=== PATIENT | female | born 1935 | race Caucasian/White ===

== ENCOUNTER 2017-06-22 10:55 | Inpatient (IN) | payer OTHER ==
[~2017-06-22] VITALS: Ht 160 cm; Wt 66.2 kg
--- NOTE | ~2017-06-22 | EKG ---
[address] [place] [address] ELECTROCARDIOGRAM REPORT Name: AMAN DEY Room #: 412-P ADM IN M.R.#: [id number] Admission: 06/22/17 Attend Phys: Bunny Knox Discharge: Date of : 31 Report #: [id number] THIS REPORT FOR: //name// [facility] ED Test Date: 2017-06-22 Test Time: 11:15:31 Pat Name: AMAN DEY Department: Room: [facility] Gender: F Industrial Equipment Mechanic: Ziggy RODRIGUEZ : 1935 Requested By: Amanda Cosby Order Number: [id number] MD: Vikram Lange Measurements Intervals [place] Rate: 103 P: 48 VA: 127 QRS: 59 QRSD: 92 T: 24 QT: 340 QTc: 445 Interpretive Statements Sinus tachycardia Otherwise no significant abnormality No previous ECG available for comparison Electronically Signed On 06-23-2017 7:47:11 CDT by Vikram Lange [email or web address] <ELECTRONICALLY SIGNED> By: Vikram Lange MD, [facility] 06/23/17 0747 [id number] 1115 Vikram Lange MD, FACC /EPI
[2017-06-22 10:57] VITALS: BP 147/79
[2017-06-22 11:21] LABS: URINE BILIRUBIN 1+ (Negative); URINE BLOOD NEGATIVE (Negative); URINE COLOR YELLOW; URINE GLUCOSE-RANDOM* NEGATIVE (Negative); URINE KETONES 1+ (Negative); URINE NITRITE NEGATIVE (Negative); URINE PROTEIN (DIPSTICK) TRACE (Negative); URINE SPECIFIC GRAVITY >= 1.030 (1.003-1.035)
[2017-06-22 11:22] LABS: ICTOTEST (BILI CONFIRMATORY) Negative (Negative)
[2017-06-22] MEDS ORDERED: SYNTHROID150 MCG (11:23)
[2017-06-22] MEDS ORDERED: SIMVASTATIN40 MG PO (11:24)
[2017-06-22 11:29] LABS: BACTERIA >30 Many /HPF (None Seen); SQUAMOUS >10 Many /LPF (0-3); URINE WBC 6-15 Few /HPF (0-5)
[2017-06-22 11:30] LABS: CASTS None Seen /LPF (None Seen); CRYSTALS None Seen /LPF (None Seen); URINE RBC None Seen /HPF (0-2)
[2017-06-22 12:00] LABS: ABSOLUTE NEUTROPHILS 11.6 thou/uL (1.4-8.2); BASOPHILS 0.5 % (0.0-2.0); EOSINOPHILS 0.7 % (0.0-3.0); HEMATOCRIT 40.9 % (37.0-47.0); HEMOGLOBIN 13.8 gm/dL (12.0-15.0); LYMPHOCYTES 13.1 % (24.0-44.0); MCH 29.4 pg (26.0-34.0); MCHC 33.7 g/dL (28.0-37.0); MCV 87.3 fL (80.0-100.0); MONOCYTES 8.1 % (1.0-8.0); PLATELET COUNT 299 thou/uL (150-400); POLYS 77.6 % (36.0-66.0); RBC 4.68 mil/uL (4.20-5.00); RDW 14.2 % (10.5-14.5)
[2017-06-22 12:01] LABS: MANUAL DIFF NO
[2017-06-22 12:10] LABS: ANION GAP 8 mmol/L (7-16); BUN 13 mg/dL (7-18); CALCIUM 9.8 mg/dL (8.5-10.1); CHLORIDE 100 mmol/L (98-107); CO2 26 mmol/L (21-32); CREATININE 0.8 mg/dL (0.6-1.0); GLUCOSE 113 mg/dL (74-106); POTASSIUM 3.6 mmol/L (3.5-5.1); SODIUM 134 mmol/L (136-145)
[2017-06-22 12:18] LABS: ALBUMIN 3.7 g/dL (3.4-5.0); ALKALINE PHOSPHATASE 107 U/L (46-116); DIRECT BILIRUBIN 0.2 mg/dL (<0.1-0.3); SGOT 21 U/L (15-37); SGPT 21 U/L (30-65); TOTAL BILIRUBIN 0.8 mg/dL (<0.1-1.0); TOTAL PROTEIN 8.2 g/dL (6.4-8.2); TROPONIN-I < 0.04 ng/mL (<0.04-0.07)
[2017-06-22 14:54] VITALS: BP 127/60
[2017-06-22 20:22] VITALS: BP 127/62
[2017-06-23 00:30] VITALS: BP 104/59
[2017-06-23 00:55] VITALS: BP 105/63
[2017-06-23 07:58] LABS: HEMATOCRIT 34.5 % (37.0-47.0); MCH 29.4 pg (26.0-34.0); MCHC 33.6 g/dL (28.0-37.0); MCV 87.7 fL (80.0-100.0); RBC 3.94 mil/uL (4.20-5.00); RDW 14.5 % (10.5-14.5); WBC 11.6 thou/uL (4.0-11.0)
[2017-06-23 08:00] VITALS: BP 121/46
[2017-06-23 08:02] LABS: HEMOGLOBIN 11.6 gm/dL (12.0-15.0)
[2017-06-23 08:30] VITALS: BP 121/46
[2017-06-23 16:00] VITALS: BP 130/60
[2017-06-23 20:22] VITALS: BP 104/62
[2017-06-24 04:25] VITALS: BP 120/50
[2017-06-24 20:38] VITALS: BP 137/72
[2017-06-25 06:22] VITALS: BP 124/56
[2017-06-25 06:38] LABS: MCH 29.4 pg (26.0-34.0); MCHC 33.3 g/dL (28.0-37.0); MCV 88.4 fL (80.0-100.0); RBC 4.08 mil/uL (4.20-5.00); RDW 14.4 % (10.5-14.5); WBC 8.4 thou/uL (4.0-11.0)
[2017-06-25 07:14] VITALS: BP 143/72
[2017-06-25] MEDS ORDERED: AUGMENTIN 875-1 EACH PO (09:10)
[2017-06-25] MEDS ORDERED: TRAMADOL 50 MG50 MG PO (09:10)
[2017-06-25 09:55] VITALS: BP 143/72
[2017-06-25 10:09] VITALS: BP 143/72
== END 2017-06-25 11:25 | disposition home or self-care (01) | DRG 872 ==
LOC: ER 10:55 → 4N 13:26 → EROBS 13:26 → 4N 14:55 → ENTRNSPT 06-25 11:14 → EDTRNSPTSTS 06-25 11:16 → 4N 06-25 11:25
PROVIDERS: Emergency Medicine; Hospitalist
DX: A41.9 Sepsis, unspecified organism (principal); K57.92 Diverticulitis of intestine, part unspecified, without perforation or abscess without bleeding; N39.0 Urinary tract infection, site not specified; N83.202 Unspecified ovarian cyst, left side; E66.9 Obesity, unspecified; E03.9 Hypothyroidism, unspecified; E78.5 Hyperlipidemia, unspecified; Z90.49 Acquired absence of other specified parts of digestive tract; Z90.710 Acquired absence of both cervix and uterus; Z88.5 Allergy status to narcotic agent; Z79.899 Other long term (current) drug therapy; Z68.25 Body mass index [BMI] 25.0-25.9, adult; Z87.19 Personal history of other diseases of the digestive system
CPT/HCPCS: 10790